=== PATIENT | female | born 1970 | race Caucasian/White ===

== ENCOUNTER 2017-01-27 08:32 | Day surgery (SDC) | payer OTHER ==
[~2017-01-27 08:32] MED LIST: Buffered Lidocaine 0.9% SYRIN* 5 ML/SYR SYRINGE INTRADERM ONE; Dexamethasone IV* 4 MG/ML 1 ML (4 MG) IV SLOW PU ONE; Famotidine IV* 10 MG/ML 2 ML (20 mg) IV ONE
[2017-01-27] MEDS ORDERED: Famotidine IV* 10 MG/ML 2 ML (20 mg) ONE (08:44)
[2017-01-27] MEDS ORDERED: Dexamethasone IV* 4 MG/ML 1 ML (4 MG) ONE (08:44)
[2017-01-27] MEDS ORDERED: fentaNYL* 50 MCG/ML 2 ML VIAL (100 MCG VIAL) ONE (09:18)
[2017-01-27] MEDS ORDERED: Midazolam* 1 MG/ML 5 ML VIAL (5 MG) ONE (09:18)
[2017-01-27] MEDS ORDERED: Lidocaine 1% INJ* 10 MG/ML 30 ML SDV ONE (09:27)
[2017-01-27] MEDS ORDERED: oxyCODONE/Acetamin 5/325 MG* TAB PO PRN (09:33)
[2017-01-27] MEDS ORDERED: Ondansetron INJ* 2 MG/ML VIAL IV PRN (09:33)
[2017-01-27] MEDS ORDERED: Ondansetron INJ* 2 MG/ML VIAL ONE (09:38)
[2017-01-27] MEDS ORDERED: Propofol* 10 MG/ML 20 ML BTL IV PUSH ONE (09:38)
[2017-01-27] MEDS ORDERED: Ketorolac INJ* 30 MG/ML 1 ML VIAL ONE (09:38)
[2017-01-27 10:27] VITALS: BP 120/79
--- NOTE | 2017-01-27 15:36 | OP ---
DATE OF OPERATION: 01/27/17 [facility] DATE OF : 72. SURGEON: Bria Anton MD. DEPUTY COURT CLERK: ARTHUR Dunn. ANESTHESIOLOGIST: Mark Holguin MD ANESTHESIA: Local MAC. PRE-OP DIAGNOSIS: Right thumb mass. POST-OP DIAGNOSIS: Right thumb mass. OPERATIVE PROCEDURE: Excision of right thumb mass. ESTIMATED BLOOD LOSS: Zero. TOURNIQUET TIME: About 15 minutes. INDICATIONS FOR PROCEDURE: Devi is a 46-year-old female with a painful mass on the ulnar aspect of her right thumb MP joint. She presents for removal. DESCRIPTION OF PROCEDURE: The patient was brought to the operating room, was given a sedation anesthetic, and local infiltration of 10 cc of 1% plain lidocaine in the area of her right thumb. The skin of her right hand and forearm was prepped and draped in the usual sterile fashion. The hand and forearm were exsanguinated and the tourniquet elevated to 250 mmHg. A transverse incision was made centered over the mass. We dissected bluntly through the subcutaneous tissue, branches of the radial sensory nerve were located and then retracted by the grooming assistant, Emani Mars. The adductor aponeurosis was incised longitudinally and the mass was underneath it. It was very adherent to the underlying structures. It was removed and sent for pathology. This did not destabilize the ulnar collateral ligament. The wound was irrigated and the adductor aponeurosis was repaired with 4- 0 nylon suture. The skin edges were then reapproximated with 4-0 nylon suture. The wound was dressed with Xeroform, 4x4, Webril, and an Jorge wrap. The patient tolerated the procedure well and was brought to the recovery room in good condition. [id number]/CPS #: [id number] [facility]
== END 2017-01-27 10:38 | disposition home or self-care (01) ==
LOC: OREAST 08:32
PROVIDERS: ATTEND Orthopaedic Surgery
DX: M67.441 Ganglion, right hand (principal); I10 Essential (primary) hypertension; J45.909 Unspecified asthma, uncomplicated; F17.210 Nicotine dependence, cigarettes, uncomplicated; E78.5 Hyperlipidemia, unspecified
CPT/HCPCS: 81025; 88304; J1100; J1885; J2001; J2250; J2405; J2704; J3010

== ENCOUNTER 2018-01-31 08:26 | Emergency (ER) | payer OTHER ==
[2018-01-31 08:37] VITALS: BP 145/90
--- NOTE | 2018-01-31 09:03 | UC ---
Respiratory Complaint HPI - HPI Summary HPI Summary: Patient states that right after work 2 days ago, she started experiencing universal headache which was radiating to her neck making it stiff. She states she has history of migraines and took butalbital, rizatriptan, ibuprofen and alcohol to no avail. Denies photophobia or presence of aura. States she did not have nausea or vomiting. Denies chills, fever, abdominal pain. States she has a baseline sinus congestion and that has not changed, denies cold symptoms on top of her baseline symptoms. She denies having any changes in her medications. - History of Current Complaint Chief Complaint: UCHeadache Stated Complaint: HEADACHE Time Seen by Provider: 01/31/18 08:53 Hx Obtained From: Patient Hx Last Menstrual Period: DOESN'T GET-IUD ?: No Onset/Duration: Sudden Onset, Lasting Days Timing: Constant Severity Initially: Severe Severity Currently: Severe Pain Intensity: 8 Aggravating Factors: Nothing Alleviating Factors: Nothing Associated Signs And Symptoms: Positive: Nasal Congestion, Sinus Discomfort - Risk Factors Pulmonary Embolism Risk Factors: Negative Cardiac Risk Factors: Negative Pseudomonas Risk Factors: Negative Tuberculosis Risk Factors: Negative - Allergies/Home Medications Allergies/Adverse Reactions: Allergies Allergy/AdvReac Type Severity Reaction Status Date / Time NSAIDS (Non-Steroidal Allergy GI Upset Verified 01/31/18 08:38 Anti-Inflamma AVACADO AdvReac Intermediate Abdominal Uncoded 01/20/17 10:17 Pain Eggs AdvReac Intermediate Abdominal Uncoded 01/20/17 10:17 Pain FOR ABOUT 24 HOURS PMH/Surg Hx/FS Hx/Imm Hx Previously Healthy: Yes Endocrine History: Dyslipidemia Cardiovascular History: Hypertension GI/ History: Gastroesophageal Reflux Neurological History: Migraine Psychological History: Depression - Surgical History Surgical History: Yes Surgery Procedure, Year, and Place: ADENOIDECTOMY A CHILD. 2010 BLADDER SLING, [facility] [place]. 2005 RIGHT ELBOW SURGERY, [facility] [place]. 08/04/2014 RIGHT WRIST CARPAL TUNNEL RELEASE, RIGHT ULNAR NERVE DECOMPRESSION AT THE ELBOW, [facility] [place]. 2014-LEFT WRIST CARPAL TUNNEL RELEASE/ ULNAR NERVE DECOMPRESSION. CYST REMOVED VAGINAL AREA 04/2016 - Family History Known Family History: Positive: Hypertension - Social History Alcohol Use: Occasionally Alcohol Amount: 2 DRINKS EVERY 2 DAYS Substance Use Type: None Smoking Status (MU): Light Every Day Tobacco Smoker Type: Cigarettes Amount Used/How Often: LESS THAN 1 PPD- approx 10 cig/day X 29 YEARS Length of Time of Smoking/Using Tobacco: SINCE AGE 16 - ABOUT 28 YEARS Have You Smoked in the Last Year: Yes When Did the Patient Quit Smoking/Using Tobacco: APPROX PACK/DAY OR LESS - Immunization History Most Recent Tetanus Shot: unknown Review of Systems Constitutional: Negative Skin: Negative Eyes: Negative ENT: Negative Respiratory: Negative Cardiovascular: Negative Gastrointestinal: Negative Genitourinary: Negative Motor: Negative Neurovascular: Negative Musculoskeletal: Negative Neurological: Headache All Other Systems Reviewed And Are Negative: Yes Physical Exam Triage Information Reviewed: Yes Appearance: Pain Distress, Obese Vital Signs: Initial Vital Signs Temp 100.9 F 01/31/18 08:34 Pulse 89 01/31/18 08:34 Resp 12 01/31/18 08:34 BP 145/90 01/31/18 08:34 Pulse Ox 96 01/31/18 08:34 Vital Signs Reviewed: Yes Eyes: Positive: Conjunctiva Clear ENT: Positive: Hearing grossly normal, Pharynx normal, Nasal congestion - no sinus tenderness, Other - TMs opaque Neck: Positive: Supple, Nontender, No Lymphadenopathy Respiratory: Positive: Chest non-tender, Lungs clear, Normal breath sounds, No respiratory distress Cardiovascular: Positive: RRR, No Murmur, Pulses Normal, Brisk Capillary Refill Abdomen Description: Positive: Nontender, No Organomegaly, Soft Musculoskeletal: Positive: Strength Intact, ROM Intact, No Edema Neurological: Positive: Alert, Muscle Tone Normal, Other: - CN II to XII grossly intact, sensory intact, gait wnl UC Diagnostic Evaluation - Laboratory O2 Sat by Pulse Oximetry: 96 Respiratory Course/Dx - Course Course Of Treatment: Patient was referred to ER due to intensity of her headache and lack of response to medication - Differential Dx/Diagnosis Provider Diagnoses: headache Discharge - Sign-Out/Discharge Documenting (check all that apply): Patient Departure - Discharge Plan Condition: Guarded Disposition: HOME Patient Education Materials: Acute Headache (DC) Referrals: Samina Perez NP [Primary Care Provider] - Additional Instructions: please go to ER for further evaluation - Billing Disposition and Condition Condition: GUARDED Disposition: Home
== END 2018-01-31 09:09 | disposition home or self-care (01) ==
LOC: UCEAST 08:26
DX: R51 Headache (principal); I10 Essential (primary) hypertension; E78.5 Hyperlipidemia, unspecified; K21.9 Gastro-esophageal reflux disease without esophagitis; F17.210 Nicotine dependence, cigarettes, uncomplicated; Z88.6 Allergy status to analgesic agent; Z91.012 Allergy to eggs
CPT/HCPCS: 99212; G0463

== ENCOUNTER 2018-01-31 09:33 | Emergency (ER) | payer OTHER ==
[2018-01-31] MEDS ORDERED: NS 0.9% 1000 ML* 2,000 ML IV ONE (10:26)
--- NOTE | 2018-01-31 10:28 | ED ---
Headache - HPI Summary HPI Summary: This is scribe Mikie Burnett documenting for attending Dr. Johnson SIEGEL. Pt is a 47 y/o F who presents to ED after referral from [facility] with c/o headache since the afternoon of 01/29/18. Describes the pain beginning as sharp and positioned on the occiput of the head. On 01/30/18 the pain worsened where she felt like she was hysterical from the pain. Now the pain is diffuse all over the head and pt states pain has traveled down her body. She rates pain 8/ 10 in severity at triage. Condition not alleviated by ibuprofen, triptan, butalbital, or hydrocodone that pt took. She notes that this headache is different from her usual migraines and describes it feeling as if her head was going to split open. Pt states that she cannot put her chin to chest. Notes feeling warm, sweating, left ear pain, dizziness, and cough. Denies nausea, vomiting, diarrhea, or sinus pressure. Denies sensitivity to light, sound, or smell per nurses report. Pt sees PCP at [facility]. PMHx of GERD and ulcer. FHx of heart disease, cancer, and diabetes. I, Dr. Ornelas, personally performed the services described in this documentation as scribed in my presence and it is both accurate and complete. Home Medications Medication Instructions Recorded Confirmed Type Atorvastatin* [Lipitor*] 40 mg PO BEDTIME 12/07/12 01/31/18 History Hydrocodone/Acetaminophen [Vicodin 1 tab PO DAILY PRN 03/07/13 01/31/18 History Hp] Budesonide/Formoterol Fumarate 2 puff IN BID 07/28/14 01/31/18 History [Symbicort] Lactobacillus Rhamnosus GG 1 cap PO QAM 08/16/14 01/31/18 History [Culturelle] Simethicone [Gas-X] 120 mg PO DAILY PRN 08/22/14 01/31/18 History Amlodipine Besylate [Norvasc 5 mg 1 tab PO QAM 05/23/15 01/31/18 History tab] Esomeprazole Magnesium [Nexium] 40 mg PO BID 04/28/16 01/31/18 History Montelukast Sodium TAB* [Singulair 1 tab PO DAILY 04/28/16 01/31/18 History 5 mg TAB*] Fluticasone NASAL SPRAY 50MCG* 2 spray BOTH NARES DAILY 06/03/16 01/31/18 History [Flonase NASAL SPRAY 50MCG*] Levonorgestrel (IUD) (NF) [Mirena 20 mcg IU SEE INSTRUCTIONS 06/03/16 01/31/18 History (NF)] Butalb/Acetaminophen/Caffeine 1 cap PO Q6H PRN 08/20/16 01/31/18 History [Butalbital/APAP/Caffeine 50-300-40 mg] Chlorthalidone TAB* [Hygroton TAB*] 25 mg PO QAM 08/20/16 01/31/18 History Cyclobenzaprine TAB* [Flexeril 10 10 mg PO TID PRN 08/20/16 01/31/18 History MG TAB*] Docusate CAP* [Colace Cap*] 100 mg PO BID PRN 08/20/16 01/31/18 History Metaxalone TAB* [Skelaxin TAB*] 800 mg PO TID PRN 08/20/16 01/31/18 History Spiriva Inhaler DEVICE* 2 puff INH DAILY 01/20/17 01/31/18 History Xanax TAB* 1 tab PO Q8HR 01/20/17 01/31/18 History - History Of Current Complaint Chief Complaint: EDHeadache Stated Complaint: HEADACHE Time Seen by Provider: 01/31/18 10:19 Hx Obtained From: Patient, Medical Records - [facility] Onset/Duration: Started days ago, Still Present Initially Headache Was: Severe Currently Pain Is: Current Pain Scale(0-10)= - 8, Severe Timing: Constant Character: Sharp Location of Headache: Diffuse - currently, Occipital - pain began here Radiates to: down her body Aggravating Factor: Nothing Allevating Factors: Nothing Associated Signs And Symptoms: Dizziness, Nausea - NEGATIVE, Vomiting - NEGATIVE , Sinus Pressure - NEGATIVE, Neck Stiffness, Other (Noted In Comments) - feeling warm, sweating, left ear pain, and cough - Allergies/Home Medications Allergies/Adverse Reactions: Allergies Allergy/AdvReac Type Severity Reaction Status Date / Time NSAIDS (Non-Steroidal Allergy GI Upset Verified 01/31/18 08:38 Anti-Inflamma AVACADO AdvReac Intermediate Abdominal Uncoded 01/20/17 10:17 Pain Eggs AdvReac Intermediate Abdominal Uncoded 01/20/17 10:17 Pain FOR ABOUT 24 HOURS PMH/Surg Hx/FS Hx/Imm Hx Previously Healthy: No Endocrine/Hematology History: Denies: Hx Diabetes, Hx Thyroid Disease Cardiovascular History: Reports: Hx Hypertension - ON MED Respiratory History: Reports: Hx Asthma - USES INHALER DAILY Denies: Hx Chronic Obstructive Pulmonary Disease (COPD) GI History: Reports: Hx Gastroesophageal Reflux Disease - ON MED, Hx Ulcer Musculoskeletal History: Reports: Hx Back Problems Sensory History: Denies: Hx Contacts or Glasses, Hx Hearing Aid Opthamlomology History: Denies: Hx Contacts or Glasses Neurological History: Reports: Hx Migraine, Hx Seizures - A CHILD-LAST SEIZURE AGE 4, Other Neuro Impairments/Disorders - "NERVE ISSUES" IN RIGHT LEG- SEVERE NERVE BURNING AT TIMES Psychiatric History: Reports: Hx Anxiety - Cancer History Hx Chemotherapy: No Hx Radiation Therapy: No - Surgical History Surgery Procedure, Year, and Place: ADENOIDECTOMY A CHILD. 2010 BLADDER SLING, [facility] [place]. 2005 RIGHT ELBOW SURGERY, [facility] [place]. 08/04/2014 RIGHT WRIST CARPAL TUNNEL RELEASE, RIGHT ULNAR NERVE DECOMPRESSION AT THE ELBOW, [facility] [place]. 2014-LEFT WRIST CARPAL TUNNEL RELEASE/ ULNAR NERVE DECOMPRESSION. CYST REMOVED VAGINAL AREA 04/2016 Hx Anesthesia Reactions: No Infectious Disease History: No Infectious Disease History: Denies: Hx Clostridium Difficile, Hx Hepatitis, Hx Human Immunodeficiency Virus (HIV), Hx of Known/Suspected MRSA, Hx Shingles, Hx Tuberculosis, Hx Known/ Suspected VRE, Hx Known/Suspected VRSA, History Other Infectious Disease, Traveled Outside the [place] in Last 30 Days - Family History Known Family History: Positive: Hypertension - Social History Alcohol Use: Occasionally Alcohol Amount: 2 DRINKS EVERY 2 DAYS Substance Use Type: Reports: None Smoking Status (MU): Light Every Day Tobacco Smoker Type: Cigarettes Amount Used/How Often: LESS THAN 1 PPD- approx 10 cig/day X 29 YEARS Length of Time of Smoking/Using Tobacco: SINCE AGE 16 - ABOUT 28 YEARS Have You Smoked in the Last Year: Yes Review of Systems Positive: Skin Diaphoresis, Other - Dizziness, feeling warm Positive: Ear Ache - left ear, Other - cough, NEGATIVE: sinus pressure Cardiovascular: Negative Respiratory: Negative Negative: Vomiting, Diarrhea, Nausea Skin: Negative Positive: Headache Psychological: Normal All Other Systems Reviewed And Are Negative: Yes Physical Exam - Summary Physical Exam Summary: Appearance: Well-appearing, moderate pain distress, well-nourished Skin: Warm, color reflects adequate perfusion, dry Head: Normal Head/Face inspection, atraumatic Eyes: Conjunctiva clear, PERRL EOMI ENT:TM's clear bilat, pharynx: clear. Sinuses nontender Neck: Supple, no nodes, no JVD, no posterior spinal tenderness, states she can t put her chin to chest but nods her head easily w/o c/o pain Respiratory: bilateral expiratory wheezes, no respiratory distress Cardio: RRR, No murmur, pulses normal, brisk capillary refill Abdomen: Soft, nontender Bowel sounds: Present Musculoskeletal: Strength Intact/ROM intact, no calf tenderness, no edema. Psychological: Normal Neuro: A&O x3, CN II-XII intact, motor function 5/5, sensation intact, cerebellar normal, normal chin to chest, no meningismus. Triage Information Reviewed: Yes Vital Signs On Initial Exam: Initial Vitals Temp Pulse Resp BP Pulse Ox 97.5 F 81 16 129/77 97 01/31/18 09:40 01/31/18 09:40 01/31/18 09:40 01/31/18 09:40 01/31/18 09:40 Vital Signs Reviewed: Yes Diagnostics - Vital Signs Vital Signs Temp Pulse Resp BP Pulse Ox 01/31/18 09:40 97.5 F 81 16 129/77 97 - Laboratory Result Diagrams: 01/31/18 11:00 01/31/18 11:00 Lab Statement: Any lab studies that have been ordered have been reviewed, and results considered in the medical decision making process. - Radiology CXR Radiology Interpretation Completed By: Radiologist - Impression: No active cardiopulmonary disease. ED Physician reviewed this report. - CT Brain CT CT Interpretation Completed By: Radiologist - Impression: No acute intracranial pathology. ED Physician reviewed this report. Re-Evaluation - Re-Evaluation First Eval Re-Evaluation Time: 11:50 Change: Improved Comment: Pt is reading a magazine. Afebrile, nods her head and moves her neck in all directions. IV infusing. Awaiting duoneb. Lungs still with exp wheezes. Pt asks for me to Rx more hydrocodone that she uses for her back. Second Eval Re-Evaluation Time: 12:25 Change: Unchanged Comment: pt comes to desk and states she can't wait for results. Advised to let me check results. I will discharge pt. Advised pt that she is asking for hydrocodone RX too soon, received 20 day supply on 01/15/18, so I will not RX it. Headache Course/Dx - Course Course Of Treatment: 47 yo F referred from [facility] for further evaluation of 3 day headache not treated with Butalbital, triptan or hydrocodone, a headache unlike her usual migraine. Pt also with chronic low back pain, on hydrocodone. Pt also states she could not touch her chin to her chest. Pt afebrile in and in the ED, and did not document a temp at home. On exam, pt with free movement of her neck, no meningismus, no pain on palpation of posterior spines of her neck. Her wbc count is normal at 7.6, CRP is 9.9, ESR normal at 9. CT brain shows no acute intracranial pathology. CXR shows no active cardiopulmonary disease. Pt was given IV fluids, Rapid strep test was negative. Toradol 30mg IV relieved pt's pain. Pt asked for RX for more hydrocodone. I stop shows that pt received 20 day supply of hydrocodone on 01/15/18, so will not RX hydrocodone. Pt frustrated that I will not RX hydrocodone, even when shown actual I stop results, tries to dispute that she did not receive a 20 day supply. I advised her that it was [place] state law, and I could not Rx hydrocodone. Pt left ED ambulatory, in NAD. - Diagnoses Differential Diagnosis/HQI/PQRI: Meningitis, Migraine, Sinus Headache, Tension Headache Provider Diagnoses: Cephalgia, Left ear pain, Exacerbation of chronic back pain, Bronchospasm, acute Discharge - Sign-Out/Discharge Documenting (check all that apply): Patient Departure - home - Discharge Plan Condition: Stable Disposition: HOME Patient Education Materials: Acute Headache (ED), Bronchospasm (ED) Referrals: Samina Perez NP [Primary Care Provider] - 2 Days Additional Instructions: You were given toradol IV for pain, and IV fluids. Your CT brain and Chest Xray were normal. Dr. Ornelas did not feel you needed a spinal tap and did not diagnose meningitis. Dr. Ornelas cannot prescribe more hydrocodone because you had 60 tablets dispensed on 8/3/18 which is a 20 day supply according to the [facility] prescription monitoring program. You stated that you will call Samina, your [employer] tomorrow. You did not complete the breathing treatment. You did not finish your IV fluids. Return to the ER if you have new or worsening symptoms. - Billing Disposition and Condition Condition: STABLE Disposition: Home
[2018-01-31 10:46] VITALS: BP 124/83
[2018-01-31] MEDS ORDERED: Ketorolac INJ* 30 MG/ML 1 ML VIAL IV PUSH ONE (10:51)
[2018-01-31] MEDS ORDERED: Albuterol/Ipratropium NEB.SOL* Albuterol 2.5 MG/Ipratropium 0.5 MG 3 ML INH ONE (10:52)
[2018-01-31 11:06] LABS: ABS Basophils 0.1 10^3/ul (0-0.2); ABS Eosinophils 0.1 10^3/ul (0-0.6); ABS Lymphocytes 1.7 10^3/ul (1.0-4.8); ABS Monocytes 0.4 10^3/ul (0-0.8); ABS Neutrophils 5.3 10^3/ul (1.5-7.7); ABS Nucleated RBC 0 10^3/ul; Eosinophil % 1.1 % (0-6); Hematocrit 50 % (35-47); Hemoglobin 17.4 g/dl (12.0-16.0); Lymphocyte % 21.9 % (25-47); Mean Corpuscular HGB Conc 35 g/dl (31-36); Mean Corpuscular Hemoglobin 35 pg (27-31); Mean Corpuscular Volume 99 fL (80-97); Mean Platelet Volume 6.7 um3 (7.4-10.4); Nucleated Red Blood Cells % 0.1; Platelet Count 256 10^3/ul (150-450); Red Blood Count 5.03 10^6/ul (4.00-5.40); Red Cell Distribution Width 14 % (10.5-15); White Blood Count 7.6 10^3/ul (3.5-10.8)
[2018-01-31 11:14] LABS: INR 0.82 (0.77-1.02)
[2018-01-31 11:23] LABS: EGFR Non-African American 68.3 (>60)
--- NOTE | 2018-01-31 12:15 | RAD ---
HISTORY: headache x 3 days COMPARISONS: April 28, 2016 TECHNIQUE: Multiple contiguous axial CT scans were obtained of the head without intravenous contrast. FINDINGS: HEMORRHAGE/INFARCT: There is no hemorrhage or acute infarct. MASSES/SHIFT: There is no mass or shift. EXTRA-AXIAL SPACES: There are no extra-axial fluid collections. SULCI AND VENTRICLES: The sulci and ventricles are normal in size and position for the patient's stated age. CEREBRUM: There are no focal parenchymal abnormalities. BRAINSTEM: There are no focal parenchymal abnormalities. CEREBELLUM: There are no focal parenchymal abnormalities. VESSELS: The vessels are grossly normal. PARANASAL SINUSES: The paranasal sinuses are clear. ORBITS: The orbits are unremarkable. BONES AND SOFT TISSUE: No bone or soft tissue abnormalities are noted. OTHER: None IMPRESSION: NO ACUTE INTRACRANIAL PATHOLOGY.
--- NOTE | 2018-01-31 12:19 | RAD ---
HISTORY: cough, wheezing COMPARISONS: August 16, 2012 VIEWS: 4: Frontal dual-energy and lateral views of the chest. FINDINGS: CARDIOMEDIASTINAL SILHOUETTE: The cardiomediastinal silhouette is normal. LIZZIE: The lizzie are normal. PLEURA: The costophrenic angles are sharp. No pleural abnormalities are noted. LUNG PARENCHYMA: The lungs are clear. ABDOMEN: The upper abdomen is clear. There is no subphrenic gas. BONES AND SOFT TISSUES: No bone or soft tissue abnormalities are noted. OTHER: None. IMPRESSION: NO ACTIVE CARDIOPULMONARY DISEASE.
[2018-01-31 12:33] LABS: Urine Appearance Clear; Urine Blood Negative (Negative); Urine Color Straw; Urine Ketones Negative (Negative); Urine Protein Negative (Negative); Urine Specific Gravity 1.003 (1.010-1.030); Urine Urobilinogen Negative (Negative)
== END 2018-01-31 12:59 | disposition home or self-care (01) ==
LOC: ED 09:33
DX: R51 Headache (principal); H92.02 Otalgia, left ear; M54.9 Dorsalgia, unspecified; J45.909 Unspecified asthma, uncomplicated; I10 Essential (primary) hypertension; K21.9 Gastro-esophageal reflux disease without esophagitis; Z88.6 Allergy status to analgesic agent; Z91.012 Allergy to eggs; Z91.018 Allergy to other foods; F17.210 Nicotine dependence, cigarettes, uncomplicated
CPT/HCPCS: 36415; 70450; 71046; 80053; 80307; 81003; 83605; 84702; 85025; 85610; 85652; 85730; 86140; 87651; 96374; 99283; A9270-GY; J1885

== ENCOUNTER 2018-07-08 09:31 | Emergency (ER) | payer OTHER ==
[2018-07-08 09:43] VITALS: BP 117/87
--- NOTE | 2018-07-08 10:52 | UC ---
Upper Extremity HPI - HPI Summary HPI Summary: 48-year-old woman comes in the clinic today with a chief complaint of left elbow pain. Patient was lifting something heavy yesterday when she felt a snap and worse pain in her left elbow. There is swelling on the lateral aspect of the elbow. Pain is worse with any kind of range of motion primarily extension and supination. No sensation deficits. Denies any other injuries. - History of Current Complaint Chief Complaint: UCUpperExtremity Stated Complaint: SHOULDER Time Seen by Provider: 07/08/18 10:50 Hx Last Menstrual Period: mirena Pain Intensity: 8 - Allergies/Home Medications Allergies/Adverse Reactions: Allergies Allergy/AdvReac Type Severity Reaction Status Date / Time NSAIDS (Non-Steroidal Allergy GI Upset Verified 07/08/18 09:43 Anti-Inflamma AVACADO AdvReac Intermediate Abdominal Uncoded 07/08/18 09:43 Pain Eggs AdvReac Intermediate Abdominal Uncoded 07/08/18 09:43 Pain FOR ABOUT 24 HOURS Home Medications: Home Medications Simethicone TAB* [Mylicon TAB*] 120 mg PO DAILY PRN 07/08/18 [History Confirmed 07/08/18] Venlafaxine CAP (NF) [Effexor CAP (NF)] 75 mg PO Q8HR 07/08/18 [History Confirmed 07/08/18] PMH/Surg Hx/FS Hx/Imm Hx Previously Healthy: Yes - CHRONIC BACK PAIN,ON VICODEN - Surgical History Surgical History: Yes Surgery Procedure, Year, and Place: ADENOIDECTOMY A CHILD. [place] [facility] [place] [facility] [place]2014 RIGHT WRIST CARPAL TUNNEL RELEASE, RIGHT ULNAR NERVE DECOMPRESSION AT [place] [facility] [place]-LEFT WRIST CARPAL TUNNEL RELEASE/ ULNAR NERVE DECOMPRESSION. CYST REMOVED VAGINAL AREA 04/2016 - Family History Known Family History: Positive: Hypertension - Social History Alcohol Use: Weekly Alcohol Amount: 2 DRINKS EVERY 2 DAYS Substance Use Type: None Smoking Status (MU): Light Every Day Tobacco Smoker Type: Cigarettes Amount Used/How Often: LESS THAN 1 PPD- approx 10 cig/day X 29 YEARS Length of Time of Smoking/Using Tobacco: SINCE AGE 16 - ABOUT 28 YEARS Have You Smoked in the Last Year: Yes When Did the Patient Quit Smoking/Using Tobacco: APPROX PACK/DAY OR LESS - Immunization History Most Recent Tetanus Shot: unknown Review of Systems All Other Systems Reviewed And Are Negative: Yes Constitutional: Positive: Negative Skin: Positive: Negative Eyes: Positive: Negative ENT: Positive: Other - RECENT RASH Respiratory: Positive: Negative Cardiovascular: Positive: Negative Gastrointestinal: Positive: Negative Motor: Positive: Decreased ROM Neurovascular: Positive: Negative Musculoskeletal: Positive: Other: - SEE HPI Neurological: Positive: Negative Psychological: Positive: Negative Is Patient Immunocompromised?: No Physical Exam Triage Information Reviewed: Yes Appearance: Well-Appearing, No Pain Distress, Well-Nourished Vital Signs: Initial Vital Signs Temp 97.1 F 07/08/18 09:38 Pulse 84 07/08/18 09:38 Resp 17 07/08/18 09:38 BP 117/87 07/08/18 09:38 Pulse Ox 100 07/08/18 09:38 Vital Signs Reviewed: Yes Eye Exam: Normal Eyes: Positive: Conjunctiva Clear Neck exam: Normal Neck: Positive: Supple Respiratory: Positive: No respiratory distress Musculoskeletal: Positive: Other: - Left elbow has swelling over the radial head. It is tender to palpation at that site. Patient is able to supinate and extend however with pain. Normal radial pulses normal capillary refill fingers wrist and shoulder range of motion. Neurological Exam: Normal Neurological: Positive: Alert, Muscle Tone Normal Psychological Exam: Normal Psychological: Positive: Age Appropriate Behavior Skin: Positive: Other - EXCORIATED PUNCTATE RASH RIGHT FOREARM Upper Extremity Course/Dx - Course Course Of Treatment: Order Information: ELBOW LEFT 3+VWS. Accession Number: [id number]. CPT: 95855. HISTORY: pain s/p injury. COMPARISONS: None. VIEWS : 4 , Frontal, lateral, and oblique views of the left elbow. FINDINGS: BONE DENSITY: Normal. BONES: There is no displaced fracture. There is an enthesophyte of the olecranon. JOINTS: There is no arthropathy. There is no posterior supracondylar fat pad to suggest a. joint effusion. ALIGNMENT: There is no dislocation. SOFT TISSUES: Unremarkable. OTHER FINDINGS: None. IMPRESSION: NO ACUTE OSSEOUS INJURY. IF SYMPTOMS PERSIST, RECOMMEND REPEAT IMAGING. . < Electronically signed by Fan Gunderson MD in OV> 07/08/18 1017. I discussed the x-ray report I discussed the x-ray report with patient. No fracture seen. Patient has had surgery in the right elbow in the past with orthopedics and the plan is to follow-up with orthopedics for further evaluation. Patient heart he has her own sling and she started on Vicodin to help with the pain. Unable to take anti-inflammatories due to peptic ulcers. - Differential Dx/Diagnosis Provider Diagnosis: Sprain of left elbow Discharge - Sign-Out/Discharge Documenting (check all that apply): Patient Departure All imaging exams completed and their final reports reviewed: Yes - Discharge Plan Condition: Stable Disposition: HOME Patient Education Materials: Elbow Sprain (ED) Referrals: Samina Perez NP [Primary Care Provider] - Helga Quiñonez MD [Medical Doctor] - Bria Anton MD [Medical Doctor] - Additional Instructions: FOLLOW UP WITH ORTHOPEDICS. GET RECHECKED FOR ANY WORSENING OF YOUR CONDITION OR QUESTIONS OR CONCERNS. - Billing Disposition and Condition Condition: STABLE Disposition: Home
== END 2018-07-08 11:11 | disposition home or self-care (01) ==
LOC: UCEAST 09:31
DX: S53.402A Unspecified sprain of left elbow, initial encounter (principal); X50.0XXA Overexertion from strenuous movement or load, initial encounter; Y92.9 Unspecified place or not applicable; R21 Rash and other nonspecific skin eruption; M54.9 Dorsalgia, unspecified; Z88.6 Allergy status to analgesic agent; F17.210 Nicotine dependence, cigarettes, uncomplicated
CPT/HCPCS: 99211; G0463

== ENCOUNTER 2018-09-14 15:09 | Emergency (ER) | payer OTHER ==
[2018-09-14 15:21] VITALS: BP 136/80
--- NOTE | 2018-09-14 15:39 | UC ---
Abdominal Pain Female HPI - HPI Summary HPI Summary: ONSET THIS MORNING OF SHARP DIFFUSE ABDOMINAL PAIN WORSE IN THE EPIGASTRIC REGION. HAS HAD NAUSEA AND DRY HEAVING. NO DIARRHEA. PATIENT ACTUALLY STATES SHE STRUGGLES WITH CONSTIPATION. LAST BM WAS A SMALL ONE YESTERDAY. DOES NOT BELIEVE SHE HAS PASSED ANY GAS TODAY. HAS NOT EATEN ANYTHING TODAY. TOOK A ZOFRAN THIS MORNING WHICH DID NOT HELP. NO URINARY SYMPTOMS. - History of Current Complaint Chief Complaint: UCAbdominalPain Stated Complaint: ABD PAIN Time Seen by Provider: 09/14/18 15:15 Hx Obtained From: Patient Hx Last Menstrual Period: Mirena IUD Onset/Duration: Sudden Onset, Lasting Hours, Still Present Timing: Constant Severity Initially: Moderate Severity Currently: Severe Pain Intensity: 9 Pain Scale Used: 0-10 Numeric Location: Epigastric Radiates: Yes Radiates to: Back Character: Sharp Aggravating Factor(s): Nothing Alleviating Factor(s): Nothing Associated Signs and Symptoms: Positive: Back Pain, Constipation, Nausea. Negative: Fever, Vomiting, Diarrhea Allergies/Adverse Reactions: Allergies Allergy/AdvReac Type Severity Reaction Status Date / Time NSAIDS (Non-Steroidal Allergy GI Upset Verified 09/14/18 15:14 Anti-Inflamma AVACADO AdvReac Intermediate Abdominal Uncoded 09/14/18 15:14 Pain Eggs AdvReac Intermediate Abdominal Uncoded 09/14/18 15:14 Pain FOR ABOUT 24 HOURS PMH/Surg Hx/FS Hx/Imm Hx Cardiovascular History: Hypertension Respiratory History: Asthma GI/ History: Ulcer - Surgical History Surgical History: Yes Surgery Procedure, Year, and Place: ADENOIDECTOMY A CHILD. 2010 BLADDER SLING, [facility] [place]. 2005 RIGHT ELBOW SURGERY, [facility] [place]. 08/04/2014 RIGHT WRIST CARPAL TUNNEL RELEASE, RIGHT ULNAR NERVE DECOMPRESSION AT THE ELBOW, [facility] [place]. 2014-LEFT WRIST CARPAL TUNNEL RELEASE/ ULNAR NERVE DECOMPRESSION. CYST REMOVED VAGINAL AREA 04/2016 - Family History Known Family History: Positive: Hypertension - Social History Alcohol Use: Weekly Alcohol Amount: 2 DRINKS EVERY 2 DAYS Substance Use Type: None Smoking Status (MU): Light Every Day Tobacco Smoker Type: Cigarettes Amount Used/How Often: LESS THAN 1 PPD- approx 10 cig/day X 29 YEARS Length of Time of Smoking/Using Tobacco: SINCE AGE 16 - ABOUT 28 YEARS Have You Smoked in the Last Year: Yes When Did the Patient Quit Smoking/Using Tobacco: APPROX PACK/DAY OR LESS - Immunization History Most Recent Tetanus Shot: unknown Review of Systems All Other Systems Reviewed And Are Negative: Yes Constitutional: Positive: Chills Respiratory: Positive: Negative Cardiovascular: Positive: Negative Gastrointestinal: Positive: Abdominal Pain, Nausea, Other - CONSTIPATION Genitourinary: Positive: Negative Physical Exam Triage Information Reviewed: Yes Appearance: Well-Nourished, Pain Distress - MOD/SEVERE Vital Signs: Initial Vital Signs Temp 96.2 F 09/14/18 15:17 Pulse 104 09/14/18 15:17 Resp 18 09/14/18 15:17 BP 136/80 09/14/18 15:17 Pulse Ox 99 09/14/18 15:17 Vital Signs Reviewed: Yes Eyes: Positive: Conjunctiva Clear ENT: Positive: Hearing grossly normal Neck: Positive: Supple Respiratory Exam: Normal Cardiovascular: Positive: Tachycardia Abdomen Description: Positive: Soft, Other: - TENDER DIFFUSELY BUT WORST IN EPIGASTRIC REGION. Negative: CVA Tenderness (R), CVA Tenderness (L), Distended Bowel Sounds: Positive: Present Musculoskeletal: Positive: No Edema Neurological: Positive: Alert Psychological: Positive: Age Appropriate Behavior Skin: Negative: Rashes Abd Pain Female Course/Dx - Course Course Of Treatment: PATIENT WITH WORSENING EPIGASTRIC ABDOMINAL PAIN SINCE THIS MORNING. LOOKS ACUTELY UNCOMFORTABLE IN EXAM ROOM. PATIENT ADVISED THAT SHE REQUIRES WORKUP BEYOND WHAT IS AVAILABLE IN THE URGENT CARE. TO [facility] [place] ER BY AMBULANCE - Differential Dx/Diagnosis Provider Diagnosis: Epigastric abdominal pain - Physician Notification/Consults Discussed Care of Patient With: Sam Pierson - TO [facility] [place] [facility] BY AMBULANCE Time Discussed With Above Provider: 15:40 Instructed by Provider To: MD Will See In ED Discharge - Sign-Out/Discharge Documenting (check all that apply): Patient Departure All imaging exams completed and their final reports reviewed: No Studies - Discharge Plan Condition: Stable Disposition: TRANS HIGHER LVL OF CARE FAC Referrals: Samina Perez NP [Primary Care Provider] - - Billing Disposition and Condition Condition: STABLE Disposition: Trans Higher Lvl of Care Fac
[2018-09-14] MEDS ORDERED: NS 0.9% 1000 ML** 1,000 ML IV ONE (15:45)
[2018-09-14] MEDS ORDERED: Morphine 10 MG/ML VIAL (1 ml) IV ONE (15:55)
[2018-09-14] MEDS ORDERED: Ondansetron INJ* 2 MG/ML VIAL ONE (16:02)
[2018-09-14] MEDS ORDERED: Ondansetron INJ* 2 MG/ML VIAL IV ONE (16:02)
== END 2018-09-14 16:00 | disposition short-term general hospital (02) ==
LOC: UCEAST 15:09
DX: R10.13 Epigastric pain (principal); F17.210 Nicotine dependence, cigarettes, uncomplicated
CPT/HCPCS: 96374; 96375; 99213; G0463; J2270; J2405

== ENCOUNTER 2019-06-21 08:42 | Day surgery (SDC) | payer OTHER ==
--- NOTE | 2019-06-16 20:27 | HP ---
PREOPERATIVE HISTORY AND PHYSICAL: DATE OF ADMISSION/SURGERY: 06/21/19 DATE OF OFFICE VISIT/ENCOUNTER: 05/30/19 ATTENDING SURGEON: Bria Anton MD * (DICTATED BY ARTHUR GRIGGS) PRIMARY CARE PHYSICIAN: Dr. Melendez. PROCEDURE: Lateral release, left elbow. HISTORY OF PRESENT ILLNESS: This is a 49-year-old female who has had ongoing problems with left elbow lateral epicondylitis for a couple of years. She has received cortisone injections over time that had been helpful, but unfortunately the symptoms always return. In the past, she has had a right elbow lateral release and has done quite well with that. She would now like to proceed with a left elbow lateral release. She is prescribed hydrocodone/ acetaminophen by her primary care physician for chronic back pain. PAST MEDICAL HISTORY: 1. Hypertension. 2. Hypercholesterolemia. 3. Asthma. 4. Diabetes mellitus type 2. 5. Chronic back pain. 6. History of bronchitis/pneumonia. PAST SURGICAL HISTORY: 1. Excision mass from right thumb. 2. Lateral release, right elbow. CURRENT MEDICATIONS: 1. Amlodipine besylate 10 mg daily. 2. Atorvastatin calcium 10 mg daily. 3. Butalbital/aspirin/caffeine/codeine p.r.n. 4. Calcium, magnesium, zinc daily. 5. Chlorthalidone 25 mg daily. 6. Fluticasone propionate 2 sprays each nostril daily as needed. 7. Glipizide. 8. Hydrocodone/acetaminophen. 9. Insulin lispro. 10. Metformin HCl. 11. Montelukast sodium 10 mg daily. 12. Nexium 40 mg 1 cap b.i.d. 13. Sumatriptan succinate. 14. Symbicort 2 puffs twice daily. 15. Vitamin B12 daily. ALLERGIES: Eggs. No known drug allergies. FAMILY MEDICAL HISTORY: Noncontributory. SOCIAL HISTORY: The patient is currently not working. She is unemployed. 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 She is a current smoker, half a pack per day since age 16. She denies recreational drug use. She drinks alcohol on occasion. REVIEW OF SYSTEMS: Negative for general, cephalic, cardiovascular, respiratory , GI, , other musculoskeletal, integumentary, endocrine, neurologic, and hematologic symptoms. Infectious Disease: Negative for MRSA, hepatitis C, HIV. PHYSICAL EXAMINATION GENERAL: A well-developed, well-nourished 49-year-old female, in no acute distress. VITAL SIGNS: Height 5 feet 2 inches, weight 189 pounds. Pulse rate 103, blood pressure 132/78. HEENT: Normocephalic, atraumatic. Pupils are equal, round, and reactive to light and accommodation. Extraocular movements are intact. Throat is clear. NECK: Supple. No palpable lymph nodes. PULMONARY: Lungs are clear to auscultation bilaterally. No wheezes, rales, or rhonchi. CARDIOVASCULAR: Regular rate and rhythm. S1, S2. No murmurs, rubs, or gallops. No edema. ABDOMEN: Positive bowel sounds. Soft, nontender. NEUROLOGIC: Alert and oriented x3. Cranial nerves II through XII are intact. Sensation is intact to light touch. MUSCULOSKELETAL: On exam of her left elbow, she has no visible swelling or erythema. There is tenderness to palpation at the lateral epicondyle and a bit distal to that. She has full range of motion of the elbow, but increased pain at both ends of flexion and extension and increased pain with wrist extension. Neurovascular function is intact. DIAGNOSTIC STUDIES: Imaging studies of the left elbow are unremarkable for any acute findings or osseous abnormality. IMPRESSION: Left elbow lateral epicondylitis. PLAN: The patient is scheduled to undergo a lateral release, left elbow, with Dr. Anton on 06/21/19. She will return to the office in 10 days for postop followup and suture removal. A prescription for Percocet was e-scribed to the patient's pharmacy for postoperative pain management. ARTHUR GRIGGS [id number]/[facility] #: [id number] SEAN
[~2019-06-21 08:42] MED LIST changes: -Buffered Lidocaine 0.9% SYRIN* 5 ML/SYR SYRINGE INTRADERM ONE; +Buffered Lidocaine 1% SYRIN* 1 ML/SYRINGE INTRADERM ONE; -Dexamethasone IV* 4 MG/ML 1 ML (4 MG) IV SLOW PU ONE; -Famotidine IV* 10 MG/ML 2 ML (20 mg) IV ONE; +Lactated Ringers 1000 ML Bag* 1,000 ML IV SCH; +Lidocaine 1% INJ* 10 MG/ML 30 ML SDV ONE; +Sodium Citrate/Citric Acid* 15 ML UDC PO ONE
[2019-06-21] MEDS ORDERED: Sodium Citrate/Citric Acid* 15 ML UDC ONE (08:47)
[2019-06-21] MEDS ORDERED: ceFAZolin 2 GM PREMIX in ORs 2 GM/50 ML BAG ONE (09:06)
[2019-06-21] MEDS ORDERED: KETAMINE HCL* 50 MG/ML 10 ML VIAL ONE (09:58)
[2019-06-21] MEDS ORDERED: fentaNYL* 50 MCG/ML 2 ML VIAL (100 MCG VIAL) ONE (09:58)
[2019-06-21] MEDS ORDERED: Midazolam* 1 MG/ML 2 ML VIAL (2 MG) ONE (09:58)
[2019-06-21] MEDS ORDERED: DiMENhydriNATE IV* 50 MG/ML VIAL IV PUSH PRN (10:55)
[2019-06-21] MEDS ORDERED: fentaNYL* 50 MCG/ML 2 ML VIAL (100 MCG VIAL) IV PRN (10:55)
[2019-06-21] MEDS ORDERED: Naloxone* 0.4 MG/ML 1 ML VIAL IV PRN (10:55)
[2019-06-21] MEDS ORDERED: Ondansetron INJ* 2 MG/ML VIAL ONE ×2 (10:56→13:07)
[2019-06-21 11:43] VITALS: BP 129/66
[2019-06-21] MEDS ORDERED: Ketorolac INJ* 30 MG/ML 1 ML VIAL ONE (13:07)
--- NOTE | 2019-06-21 14:03 | OP ---
DATE OF OPERATION: 06/21/19 [facility] DATE OF : 72 SURGEON: Bria Anton MD DEBRANDER: ARTHUR Dunn ANESTHESIA: General. PRE-OP DIAGNOSIS: Left lateral epicondylitis. POST-OP DIAGNOSIS: Left lateral epicondylitis. OPERATIVE PROCEDURE: Left elbow lateral release. ESTIMATED BLOOD LOSS: Zero. TOURNIQUET TIME: About 25 minutes. INDICATIONS FOR PROCEDURE: Devi is a 49-year-old female who has persistent left lateral elbow pain. She has failed conservative treatment and presents for left elbow lateral release. DESCRIPTION OF PROCEDURE: The patient was brought to the operating room, was given a general anesthetic and placed in the supine position on the operating table with a tourniquet around her left upper arm. The skin of her left upper extremity was prepped and draped in the usual sterile fashion. The upper extremity was exsanguinated and the tourniquet elevated to 250 mmHg. A longitudinal incision was made centered at the lateral epicondyle and we dissected through the subcutaneous tissue down to the extensor supinator origin. A distally based U-shaped flap was created at the extensor supinator origin. This was subperiosteally dissected off of the lateral epicondyle. The underlying tendinous tissue was very degenerated and all of the degenerated tissue was debrided and sent for pathology. The wound was copiously irrigated with saline. The extensor origin was repaired in lengthened fashion with a #1 Vicryl suture. The lateral epicondyle was debrided with a rongeur to create a bleeding bed for the tendon to repair too. The subcutaneous tissue was closed with 3-0 Polysorb and the skin with skin annamaria. The wound was dressed with Xeroform, 4x4, Webril, and an Jorge wrap. The patient tolerated the procedure well and was brought to the recovery room in good condition. [id number]/[facility] #: [id number] [facility]
== END 2019-06-21 12:02 | disposition home or self-care (01) ==
LOC: OREAST 08:42
PROVIDERS: ATTEND Orthopaedic Surgery
DX: M77.12 Lateral epicondylitis, left elbow (principal); I10 Essential (primary) hypertension; E11.9 Type 2 diabetes mellitus without complications; Z79.4 Long term (current) use of insulin; E78.00 Pure hypercholesterolemia, unspecified; J45.909 Unspecified asthma, uncomplicated; M54.9 Dorsalgia, unspecified; F17.210 Nicotine dependence, cigarettes, uncomplicated; Z79.84 Long term (current) use of oral hypoglycemic drugs
CPT/HCPCS: 81025; 88305; A9270-GY; J0690; J1885; J2250; J2405; J3010